=== PATIENT | male | born 1975 | race Hispanic/Latino ===

== ENCOUNTER 2019-01-07 15:13 | Emergency (ER) | payer MEDICARE ==
[2019-01-07 15:52] VITALS: BP 140/94
[2019-01-07] MEDS ORDERED: NORCO 5/325 PO ONE (17:38)
--- NOTE | 2019-01-07 18:35 | Emergency Department Report ---
ED Laceration HPI - HPI Chief Complaint: Wound/Laceration Stated Complaint: LFT FINGER INJURY/PAIN Time Seen by Provider: 01/07/19 17:37 Location: Upper Extremity Severity: moderate Tetanus Status: Up to Date Laceration Symptoms: Yes Pain, No Foreign Body Sensation, No Numbness, No Weakness Other History: partial skin avulsion right middle finger , minimal bleeding rom inact no nerve tendon or muscle involvment ED Review of Systems ROS: Stated complaint: LFT FINGER INJURY/PAIN Other details as noted in HPI Constitutional: denies: chills, fever Eyes: denies: eye pain, eye discharge, vision change ENT: denies: ear pain, throat pain Respiratory: denies: cough, shortness of breath, wheezing Cardiovascular: denies: chest pain, palpitations Endocrine: no symptoms reported Gastrointestinal: denies: abdominal pain, nausea, diarrhea Genitourinary: denies: urgency, dysuria Musculoskeletal: denies: back pain, joint swelling, arthralgia Skin: other (partial skin avulsion right middle finger ). denies: rash, lesions Neurological: denies: headache, weakness, paresthesias Psychiatric: denies: anxiety, depression Hematological/Lymphatic: denies: easy bleeding, easy bruising ED Past Medical Hx - Past Medical History Additional medical history: BROKEN BACK - Social History Smoking Status: Current Every Day Smoker - Medications Home Medications: Home Medications Medication Instructions Recorded Confirmed Last Taken Type cephALEXin [Keflex] 500 mg PO Q8HR 10 Days #30 cap 01/07/19 Unknown Rx Laceration Physical Exam - Exam General: Vital signs noted. No distress. Alert and acting appropriately. right middlle finger tip skin avulsion Laceration Location: Upper Extremity Laceration Exam: Yes Normal Distal CMS, No Foreign Body, No Exposed Tendon, Vessel, or Nerve, No Tendon Injury ED Course Vital Signs 01/07/19 15:48 Temperature 98 F Pulse Rate 88 Respiratory 18 Rate Blood Pressure 140/94 O2 Sat by Pulse 99 Oximetry - Laceration /Wound Repair Right Distal Finger Wound Location: upper extremity Wound Length (cm): 1 (partial finger tip avulsion) Wound's Depth, Shape: superficial Wound Explored: clean Irrigated w/ Saline (ccs): 20 Betadine Prep?: Yes Wound Debrided: none required Wound Repaired With: Dermabond (Hemistat and cling dressing bleeding controlled rom intact planer stone < 3 sec ) Progress: right middle finger tip partial skin avulsion , distal pulses intact planer stone< 3 sec, rom intact , no nerve bone on tendon involvment, wound cleaned with betadine solution, irrigated with sterile saline 20 cc, bleeding controlled with hemistat, dressing pt given wound care instructions will follow up with pcp in 2 days for wound check ED Medical Decision Making - Medical Decision Making right middle finger partial finger tip skin avulsion, see procedure note, all bleeding is controlled , tetanus is up to date, pt given wound care instructions will follow up with pcp in 2-3 days. pt for dc to home in stable condition cms remains intact. Critical care attestation.: If time is entered above; I have spent that time in minutes in the direct care of this critically ill patient, excluding procedure time. ED Disposition Clinical Impression: Avulsion of skin of finger Qualifiers: Encounter type: initial encounter Qualified Code(s): S61.209A - Unspecified open wound of unspecified finger without damage to nail, initial encounter Disposition: DC-01 TO HOME OR SELFCARE Is pt being admited?: No Does the pt Need Aspirin: No Condition: Stable Instructions: Skin Avulsion (ED) Prescriptions: cephALEXin [Keflex] 500 mg PO Q8HR 10 Days #30 cap Referrals: ABIOLA CHAHAL [Other] - 3-5 Days Forms: Work/School Release Form(ED) Time of Disposition: 18:38
== END 2019-01-07 18:46 | disposition home or self-care (01) ==
LOC: ED 15:13
DX: S61.202A Unspecified open wound of right middle finger without damage to nail, initial encounter (principal); F17.200 Nicotine dependence, unspecified, uncomplicated; X58.XXXA Exposure to other specified factors, initial encounter; Y93.89 Activity, other specified; Y92.89 Other specified places as the place of occurrence of the external cause; Y99.8 Other external cause status
CPT/HCPCS: 99282